=== PATIENT | male | born 1980 | race Caucasian/White ===

== ENCOUNTER 2018-11-13 21:03 | Emergency (ER) | payer OTHER ==
[~2018-11-13] VITALS: Ht 182.9 cm; Wt 99.6 kg
[2018-11-13 21:06] VITALS: BP 137/72
== END 2018-11-13 22:52 | disposition home or self-care (01) ==
LOC: ED 22:38
DX: S82.62XA Displaced fracture of lateral malleolus of left fibula, initial encounter for closed fracture (principal); W18.30XA Fall on same level, unspecified, initial encounter; Y93.89 Activity, other specified; Y92.89 Other specified places as the place of occurrence of the external cause; Y99.8 Other external cause status
CPT/HCPCS: 29515; 99283